=== PATIENT | female | born 2000 | race Caucasian/White ===

== ENCOUNTER 2020-03-05 06:01 | Day surgery (SDC) | payer OTHER, SELFPAY ==
[~2020-03-05] VITALS: Ht 167.6 cm; Wt 50.8 kg
[2020-03-05] MEDS ORDERED: GUAN1TAB6 PO (07:21)
[2020-03-05] MEDS ORDERED: BUPIVACAINE MPF 0.25% 10 ML VIAL INJ ONE (09:03)
[2020-03-05] MEDS ORDERED: LIDOCAINE 1% 500 MG/50 ML VIAL ONE (09:03)
[2020-03-05] MEDS ORDERED: MIDAZOLAM 2 MG/2 ML VIAL ONE (09:05)
[2020-03-05] MEDS ORDERED: fentaNYL citrate 0.05 MG/ML VIAL ONE (09:05)
[2020-03-05] MEDS ORDERED: DEXAMETHASONE 4 MG/ML VIAL ONE (09:05)
[2020-03-05] MEDS ORDERED: SEVOFLURANE 250 ML BTL INH ONE (09:05)
[2020-03-05] MEDS ORDERED: ONDANSETRON 4 MG/2 ML VIAL ONE (09:05)
[2020-03-05] MEDS ORDERED: KETOROLAC 30 MG/ML VIAL ONE (09:05)
[2020-03-05] MEDS ORDERED: ACETAMINOPHEN 325 MG TAB PO PRN (09:45)
[2020-03-05] MEDS ORDERED: HYDROmorphone 1 MG/ML AMP IVP PRN ×2 (09:45→11:35)
[2020-03-05] MEDS ORDERED: MORPHINE SULFATE 4 MG/ML SYR IV PRN (09:45)
[2020-03-05] MEDS ORDERED: MORPHINE SULFATE 2 MG/ML SYR IVP PRN (09:45)
[2020-03-05] MEDS ORDERED: ONDANSETRON 4 MG/2 ML VIAL IV PRN (09:45)
[2020-03-05] MEDS ORDERED: HYDROcodone/APAP 5/325 MG 1 TAB TAB PO PRN (09:45)
[2020-03-05] MEDS ORDERED: ONDANSETRON 4 MG/2 ML VIAL IVP PRN (11:35)
== END 2020-03-05 11:20 | disposition home or self-care (01) ==
LOC: MOR 06:01 → MFCC 06:07 → MOR 11:20
PROVIDERS: ATTEND Surgery
DX: Q83.3 Accessory nipple (principal); F41.9 Anxiety disorder, unspecified; Z20.828 Contact with and (suspected) exposure to other viral communicable diseases
CPT/HCPCS: 19120; 71045; 81025; J0690; J1100; J1885; J2001; J2250; J2405; J3010; J3490; J7060; J7120; Q0092; U0003